=== PATIENT | male | born 1970 | race Caucasian/White ===

== ENCOUNTER 2016-08-11 17:08 | Emergency (ER) | payer OTHER ==
[~2016-08-11] VITALS: Ht 175.3 cm; Wt 113.6 kg
[~2016-08-11 17:08] MED LIST: FLOMAX0.4 MG PO; NAPROSYN500 MG PO; ZOFRAN4 MG PO
[2016-08-11] MEDS ORDERED: ULTRAM50 MG PO (20:35)
[2016-08-11] MEDS ORDERED: MEDROL DOSEPAK4 MG PO (20:35)
[2016-08-11] MEDS ORDERED: BACLOFEN10 MG PO (20:35)
[2016-08-11 21:01] VITALS: BP 127/93
== END 2016-08-11 21:02 | disposition home or self-care (01) ==
LOC: EME 17:08
DX: M62.830 Muscle spasm of back (principal); M54.5 Low back pain; W01.0XXA Fall on same level from slipping, tripping and stumbling without subsequent striking against object, initial encounter; Y99.0 Civilian activity done for income or pay
CPT/HCPCS: 72131; 99281; 99284; J1885; J7512

== ENCOUNTER 2017-05-31 21:24 | Emergency (ER) | payer OTHER ==
[~2017-05-31] VITALS: Ht 175.3 cm; Wt 115.7 kg
[~2017-05-31 21:24] MED LIST changes: +BACLOFEN10 MG PO; +MEDROL DOSEPAK4 MG PO; +ULTRAM50 MG PO
[2017-05-31] MEDS ORDERED: ANTIVERT25 MG PO (23:48)
[2017-06-01 00:25] VITALS: BP 114/76
== END 2017-06-01 00:27 | disposition home or self-care (01) ==
LOC: EME 21:24 → RME 21:24
DX: S06.0X0A Concussion without loss of consciousness, initial encounter (principal); S01.01XA Laceration without foreign body of scalp, initial encounter; W01.198A Fall on same level from slipping, tripping and stumbling with subsequent striking against other object, initial encounter; Z23 Encounter for immunization
CPT/HCPCS: 99281; 99284